=== PATIENT | male | born 1960 | race Caucasian/White ===

== ENCOUNTER 2023-11-29 09:08 | Outpatient (REF) | payer OTHER, SELFPAY ==
--- NOTE | ~2023-11-29 | CT_ITS ---
EXAMINATION: CT CHEST WITH CONTRAST CLINICAL INFORMATION: Screening for colon cancer COMPARISON: None available. TECHNIQUE: Multidetector volumetric CT imaging of the chest was obtained after the administration of 50 mL of Omnipaque 350 intravenous contrast without immediate adverse reactions. Axial MIP volume rendering provided. Sagittal and coronal reformatted images were obtained. This CT examination was performed using dose optimization techniques as appropriate, variously including the following: *Automated exposure control *Adjustment of mA and/or kV according to patient size (this includes techniques or standardized protocols for targeted exams where dose is matched to indication/reason for exam; i.e. extremities or head) *Use of iterative reconstruction technique DLP: 220 mGy-cm FINDINGS: LUNGS: The lungs are clear with no evidence of inflammation or nodules. MEDIASTINUM: Normal heart size. Mild aortic valve calcifications. Mild coronary artery calcifications. No pericardial effusion. PLEURA: There is no pleural effusion. No pleural mass or thickening. AXILLA: No lymphadenopathy. UPPER ABDOMEN: The liver is diffusely low in attenuation in keeping with hepatic steatosis. OSSEOUS STRUCTURES: Multilevel degenerative changes of the thoracic spine. Degenerative changes of the bilateral sternoclavicular joints. CT/CT chest w IV con IMPRESSION: 1. No suspicious lung nodule or consolidation. 2. Mild aortic valve and coronary artery calcifications. 3. Hepatic steatosis. Fleischner guidelines were followed.
[2023-11-29] MEDS: iohexoL 350 MG/ML 100 ML INFUS..BTL 65 ML IV (09:55)
[2023-12-01 08:38] LABS: GFR POC > 60
== END 2023-11-29 09:09 | disposition home or self-care (01) ==
LOC: HO.CT 09:08
PROVIDERS: PCP Physician Assistant Medical; Visit Provider Physician Assistant Medical
DX: R07.9 Chest pain, unspecified (principal)
CPT/HCPCS: 71260; 82565; Q9967